=== PATIENT | female | born 1995 | race Caucasian/White ===

== ENCOUNTER → 2020-04-09 15:41 | Outpatient (BNVA) | payer OTHER, SELFPAY | PROVIDERS: PCP Internal Medicine; Referring Provider Internal Medicine; Visit Provider Surgery | DX: M79.89 Other specified soft tissue disorders (principal) | CPT/HCPCS: 99203 ==

== ENCOUNTER → 2020-08-20 08:24 | Outpatient (BNVA) | payer OTHER, SELFPAY | PROVIDERS: PCP Internal Medicine; Visit Provider Advanced Practice Midwife ==

== ENCOUNTER → 2021-09-02 08:31 | Outpatient (BNVA) | payer OTHER, SELFPAY | PROVIDERS: PCP Internal Medicine; Visit Provider Obstetrics & Gynecology ==

== ENCOUNTER → 2021-09-11 14:25 | Outpatient (REF) | payer OTHER, SELFPAY ==
--- NOTE | 2021-09-11 14:30 | ECG_ITS ---
Test Reason : PREOP Blood Pressure : / mmHG Vent. Rate : 060 BPM Atrial Rate : 060 BPM P-R Int : 132 ms QRS Dur : 096 ms QT Int : 400 ms P-R-T Axes : 068 065 044 degrees QTc Int : 400 ms Normal sinus rhythm Normal ECG No previous ECGs available Referred By: Jonny Briceno Electronically Signed By:SAY NORIEGA MD
[2021-09-11 14:39] LABS: MANUAL DIFF FLAG NO
[2021-09-11 14:44] LABS: Basophils Percent Auto 0.8 % (0-2); Eosinophils Absolute Auto 0.2 X10*3/uL (0.0-0.4); Eosinophils Percent Auto 3.7 % (0-4); Hematocrit 42.4 % (37.0-47.0); Hemoglobin 13.8 g/dl (12.0-16.0); Lymphocytes Absolute Auto 2.2 X10*3/uL (1.2-4.9); Lymphocytes Percent Auto 45.7 % (20-40); Mean Corpuscular HGB Conc 32.5 g/dl (31.0-35.0); Mean Corpuscular Hemoglobin 30.3 pg (27.0-33.0); Mean Corpuscular Volume 93.2 fL (80.0-98.0); Mean Platelet Volume 10.4 fL (9.4-12.3); Monocytes Absolute Auto 0.4 X10*3/uL (0.1-1.2); Monocytes Percent Auto 9.1 % (2-11); Neutrophils Percent Auto 40.7 % (45-73); Platelet Count 278 X10*3/uL (160-400); Red Blood Count 4.55 X10*6/uL (4.20-5.50); Red Cell Distribution Width 13.1 % (11.0-16.0); White Blood Count 4.9 X10*3/uL (4.8-10.8)
[2021-09-11 15:16] LABS: Alanine Aminotransferase 8 U/L (0-31); Albumin Level 4.4 g/dL (3.5-5.0); Alkaline Phosphatase 59 U/L (39-117); Aspartate Amino Transferase 13 U/L (5-31); Bilirubin Total 0.9 mg/dL (0.0-1.0); Blood Urea Nitrogen 9 mg/dL (9-16); Calcium 9.7 mg/dL (8.4-10.2); Estimated Glomerular Filt Rate > 60; Glucose Random 98 mg/dL (60-115); INTERNATIONAL NORM RATIO 1.1 (0.9-1.1); Total Protein 7.2 g/dL (6.5-8.0)
[2021-09-11 15:19] LABS: Partial Thromboplastin Time 36.1 SEC (24.1-38.0)
[2021-09-11 15:20] LABS: HCG Quantitative < 2 mIU/mL
[2021-09-11 15:26] LABS: Anion Gap 10 (12-20); Carbon Dioxide 27 mmol/L (22-29); Chloride 104 mmol/L (96-108); Potassium 4.2 mmol/L (3.3-5.1); Sodium 137 mmol/L (135-145)
[2021-09-11 16:36] LABS: Appearance Urine CLEAR; Color Urine YELLOW; Glucose Urine UA NEG (NEG); Leukocyte Esterase Urine NEG (NEG); Nitrite Urine NEG (NEG); PH 8.5 (5.0-8.0); Urine Blood NEG (NEG); Urine Ketones 5 MG/DL (NEG); Urine Protein TRACE MG/DL (NEG-TRACE)
[2021-09-11 17:02] LABS: Bacteria Urine 2+ /LPF; RBC Urine 0-2 /HPF (0); Squamous Epithelial Cell Urine TRACE /LPF; WBC Urine 0-2 /HPF (0-4)
[2021-09-12 08:02] LABS: HIV AB/AG Nonreactive (Nonreactive); HIV Num 1 0.08 S/CO (0.00-0.99)
== END ==
LOC: HO.CARD 14:25
PROVIDERS: PCP Internal Medicine; Visit Provider Internal Medicine
DX: Z01.818 Encounter for other preprocedural examination (principal)
CPT/HCPCS: 36415; 80053; 81001; 84702; 85025; 85610; 85730; 87086; 87389; 93005

== ENCOUNTER 2021-09-26 13:59 | Outpatient (REF) | payer OTHER, SELFPAY ==
--- NOTE | ~2021-09-26 | US_ITS ---
EXAMINATION: US BREAST, bilateral CLINICAL INFORMATION: For cosmetic surgery. COMPARISON: None. TECHNIQUE: High-resolution grayscale sonography of the breasts was performed by a technologist with a high-frequency linear transducer following a standardized protocol. All 4 quadrants were examined on each side. The retroareolar region was examined bilaterally FINDINGS: On the images submitted for review, no suspicious mass, area of architectural distortion, complex cyst or other sonographically suspicious lesion is identified in either breast. US/US breast RT complete IMPRESSION: No sonographic evidence of malignancy in either breast. ASSESSMENT: Right breast: BI-RADS 1 - negative.. Left breast: BI-RADS 1 - negative. RECOMMENDATIONS: Clinical follow-up
--- NOTE | ~2021-09-26 | US_ITS ---
EXAMINATION: US BREAST, bilateral CLINICAL INFORMATION: For cosmetic surgery. COMPARISON: None. TECHNIQUE: High-resolution grayscale sonography of the breasts was performed by a technologist with a high-frequency linear transducer following a standardized protocol. All 4 quadrants were examined on each side. The retroareolar region was examined bilaterally FINDINGS: On the images submitted for review, no suspicious mass, area of architectural distortion, complex cyst or other sonographically suspicious lesion is identified in either breast. US/US breast LT complete IMPRESSION: No sonographic evidence of malignancy in either breast. ASSESSMENT: Right breast: BI-RADS 1 - negative.. Left breast: BI-RADS 1 - negative. RECOMMENDATIONS: Clinical follow-up
== END 2021-09-26 14:00 | disposition home or self-care (01) ==
LOC: HO.MAMMO 13:59
PROVIDERS: PCP Internal Medicine; Visit Provider Internal Medicine
DX: Z01.818 Encounter for other preprocedural examination (principal)
CPT/HCPCS: 76641

== ENCOUNTER 2021-10-06 15:49 | Outpatient (REF) | payer OTHER, SELFPAY ==
--- NOTE | ~2021-10-06 | XR_ITS ---
EXAMINATION: XR CHEST CLINICAL INFORMATION: Encounter for cosmetic surgery COMPARISON: None TECHNIQUE: 2 views of the chest were obtained. FINDINGS: No significant abnormality is noted involving the heart, lungs, mediastinum, bony thorax or soft tissues. XR/XR chest 2V IMPRESSION: Unremarkable examination.
[2021-10-06 17:07] LABS: Free T4 (Free Thyroxine) 1.03 ng/dL (0.71-1.85); Thyroid Stimulating Hormone 0.67 uIU/mL (0.32-4.0)
== END 2021-10-06 15:50 | disposition home or self-care (01) ==
LOC: HO.LAB 15:49
PROVIDERS: PCP Internal Medicine; Visit Provider Internal Medicine
DX: Z01.818 Encounter for other preprocedural examination (principal); E04.1 Nontoxic single thyroid nodule
CPT/HCPCS: 36415; 71046; 84439; 84443

== ENCOUNTER 2021-10-10 07:28 | Outpatient (REF) | payer OTHER, SELFPAY ==
[2021-10-10 07:57] LABS: Appearance Urine HAZY; Color Urine YELLOW; Glucose Urine UA NEG (NEG); Leukocyte Esterase Urine NEG (NEG); Nitrite Urine NEG (NEG); Specific Gravity - Urine 1.025 (1.005-1.025); Urine Blood NEG (NEG); Urine Ketones NEG (NEG); Urine Protein NEG (NEG-TRACE)
== END 2021-10-10 07:29 | disposition home or self-care (01) ==
LOC: HO.LAB 07:28
PROVIDERS: PCP Internal Medicine; Visit Provider Internal Medicine
DX: R30.0 Dysuria (principal)
CPT/HCPCS: 81003

== ENCOUNTER 2021-11-10 08:35 | Outpatient (REF) | payer OTHER, SELFPAY ==
--- NOTE | ~2021-11-10 | US_ITS ---
EXAMINATION: US THYROID CLINICAL INFORMATION: Nontoxic single thyroid nodule. COMPARISON: US thyroid 03/22/2018.. TECHNIQUE: Linear transducer grayscale and color Doppler examination with attention to the region of the thyroid. FINDINGS: SIZE: Measurements of the thyroid lobes and nodules are given in sagittal, anteroposterior and transverse dimensions respectively. Right Thyroid Lobe: 5.1 x 1.7 x 1.3 cm, volume 5.9 mL. Previously 5.0 x 1.5 x 1.3 cm, volume 5.1 mL. Parenchyma: The gland echotexture is homogeneous. Thyroid vascularity is normal. Left Thyroid Lobe: 4.7 x 1.0 x 1.7 cm, volume 4.2 mL. Previously 4.6 x 1.3 x 1.7 cm, volume 5.3 mL. Parenchyma: The gland echotexture is homogeneous. Thyroid vascularity is normal. Isthmus: 0.3 cm in maximum AP dimension. Previously 0.2 cm. Estimated total number of nodules greater than or equal to 1 cm: 0. [employer] nodules are described as follows: 1. Location: Right mid. Size: 0.2 x 0.2 x 0.1 cm, volume 0.001 mL. Previously: Not seen on the previous study. Nodule characteristics: Composition: Cystic(0). ACR TI-RADS total points: 0 ACR TI-RADS category: 1 NODES: No lymphadenopathy is seen in the tissue surrounding the thyroid gland. US/US thyroid IMPRESSION: A 0.2 cm TR 1 right thyroid nodule, for which no follow-up imaging is recommended. ACR TI-RADS RECOMMENDATION REFERENCE: Ultrasound-guided fine-needle aspiration, followup ultrasound, no further follow up. * TR1 (0 point) and TR 2 (2 points): No FNA or follow up * TR3 (3 points): FNA if more than or equal to 2.5 cm in maximum dimension, followup ultrasound in 1, 3 and 5 years if 1.5 to 2.4 cm in maximum dimension. * TR4 (4-6 points): FNA if more than or equal to 1.5 cm in maximum dimension, followup ultrasound in 1, 2, 3 and 5 years if 1 to 1.4 cm in maximum dimension. * TR5 (more than or equal to 7 points): FNA if more than or equal to 1 cm in maximum dimension, followup ultrasound every year for 5 years if 0.5 to 0.9 cm in maximum dimension. * TR3, TR4 or TR5 nodules that are below the size threshold for follow up receive no follow up.
== END 2021-11-10 08:36 | disposition home or self-care (01) ==
LOC: HO.US 08:35
PROVIDERS: PCP Internal Medicine; Visit Provider Internal Medicine
DX: E04.1 Nontoxic single thyroid nodule (principal)
CPT/HCPCS: 76536

== ENCOUNTER → 2021-12-04 08:07 | Outpatient (BNVA) | payer OTHER, SELFPAY | PROVIDERS: Visit Provider Obstetrics & Gynecology | DX: Z30.9 Encounter for contraceptive management, unspecified (principal) | CPT/HCPCS: 99212 ==

== ENCOUNTER 2022-04-21 15:37 | Outpatient (REF) | payer OTHER, SELFPAY ==
[2022-04-22 04:43] LABS: HBS Num1 15.76 mIU/mL (0-7.99); HBc Num1 0.07 S/CO (0.00-0.79); HBsAGNum1 0.17 S/CO (0.00-0.99); Hepatitis B Core Antibody Nonreactive (Nonreactive); Hepatitis B Surface Antigen Negative (Negative); ~HepC Num1 0.04 S/CO (0.00-0.79); ~Hepatitis B Surface Antibody REACTIVE (Nonreactive); ~Hepatitis C Antibody Nonreactive (Nonreactive)
[2022-04-23 12:27] LABS: Rubella IgG Antibody 1.37 Index
[2022-04-23 16:47] LABS: Mumps Virus IgG Antibody <9.00 AU/mL; Rubeola IgG (Measles) <13.50 AU/mL
== END 2022-04-21 15:38 | disposition home or self-care (01) ==
LOC: HO.LAB 15:37
PROVIDERS: PCP Internal Medicine; Visit Provider Internal Medicine
DX: Z00.00 Encounter for general adult medical examination without abnormal findings (principal); R79.89 Other specified abnormal findings of blood chemistry; Z02.0 Encounter for examination for admission to educational institution
CPT/HCPCS: 36415; 86704; 86706; 86735; 86762; 86765; 86787; 86803; 87340

== ENCOUNTER 2022-09-07 08:55 | Outpatient (REF) | payer OTHER, SELFPAY | END 2022-09-07 08:56 | disposition home or self-care (01) | LOC: HO.LNP 08:55 | PROVIDERS: PCP Internal Medicine; Visit Provider Obstetrics & Gynecology | DX: Z01.419 Encounter for gynecological examination (general) (routine) without abnormal findings (principal) | CPT/HCPCS: 88142 ==

== ENCOUNTER 2023-03-22 09:08 | Outpatient (AMB) | payer OTHER, SELFPAY ==
[2023-03-22 09:10] VITALS: BP 108/72; PULSE 74; TEMP 37; O2SAT 99; BMI 32.4
--- NOTE | 2023-03-22 09:10 | MHC.OFFWIV ---
Intake Vital Signs 03/22/23 09:10 Height 5 ft 2 in Weight 177 lb 6 oz BMI 32.4 BP 108/72 Blood Pressure Location Rt brachial Position Sitting Pulse 74 Pulse Source Pulse Oximeter Temp 98.6 F Temp Source Oral Pulse Oximetry (%) 99 Oxygen Delivery Method Room Air Intake Visit Reasons: EP LT ear pain Intake Note: Patient is here today for Lt ear pain. Patient states it started Wednesday. Patient Tobacco Use Status: Never used Tobacco Allergies cephalexin [From Keflex] Allergy (Mild, Verified 03/22/23 09:10) Rash Medication List - Last Reconciled 03/22/23 by Senait Bowman PA-C albuterol sulfate 90 mcg/actuation 2 puffs inhalation Q4-6H PRN clotrimazole 1% 1 appl topical BID 4 weeks etonogestrel-ethinyl estradiol 0.12-0.015 mg/24 hr 1 vag ring vaginal Q4W HPI HPI Comments History of Present Illness Details This is a 27-year-old female with a past medical history of asthma and seasonal allergies presenting for evaluation of left ear pain that started on Wednesday night. Patient has been taking Tylenol only without complete relief of her discomfort. Patient denies having any fevers, chills, cough, shortness of breath, sore throat, difficulty swallowing or right ear pain. [facility] Medical History Asthma Surgical History History of breast augmentation Family History Mother No problems noted. Father No problems noted. Maternal Grandmother Heart attack Paternal Grandmother Heart attack Maternal Aunt Pancreatic cancer Social History Housing: Apartment Alcohol intake: current Patient Tobacco Use Status: Never used Tobacco e-Cigarette/Vaping Use: Never Used Second Hand Smoke Exposure: No service: No Current occupational status: employed Current occupation: [employer] Current occupational exposures/hazards: No Cognitive needs: No Hearing needs: No Vision needs: Yes Female Reproductive History Menstrual Age of Menarche: 12 Review of Systems Const Denies chills, Denies fever(s), Denies headache(s) and Denies malaise Eyes Reports no additional complaints ENT Denies dizziness, Reports otalgia (left), Denies headache(s), Reports hearing loss (left decreased hearing), Denies mouth pain and Denies sore throat Resp Reports no additional complaints Neuro Denies dizziness and Denies headache(s) Luis/Lymph Denies lymphadenopathy Physical Exam Vital Signs: Last Vital Signs Temp 98.6 F 03/22/23 09:10 Pulse 74 03/22/23 09:10 BP 108/72 03/22/23 09:10 Pulse Ox 99 03/22/23 09:10 Oxygen Delivery Method Room Air 03/22/23 09:10 BMI result Body Mass Index 32.4 Const General: cooperative, healthy appearing, comfortable, no acute distress and other (afebrile) Orientation/consciousness: patient oriented x3 Limitations: no limitations HEENT Head: Yes normal to inspection Ears: external ears normal, TM normal on the right, left TM abnormal (fluid level without bulging or erythema) and other (canals clear bilaterally) General nose exam: Normal external nose present Face and sinus: Yes normal facial exam and Yes sinuses nontender Mouth: Normal oral and palatal mucosa present and oropharynx normal Teeth and gingiva: dentition normal Throat: Yes posterior oropharynx normal Eyes General: appearance normal, both eyes and all related structures Neuro General: patient oriented x3 Assessment & Plan Assessment & Plan (1) Otalgia, left ear: Code(s): H92.02 - Otalgia, left ear Plan: Patient instructed to use ibuprofen 400mg every 4-6 hours as needed for discomfort and initiate fluticasone nasal spray once in each nostril daily. Patient will follow-up with her PCP within 7 days if her symptoms are not improving. Coding Level of Care Code Est Pt Level 3 (24392) Diagnoses Otalgia, left ear H92.02 Time Spent (min) 20
== END 2023-03-22 10:04 | disposition home or self-care (01) ==
PROVIDERS: PCP Internal Medicine; Visit Provider Physician Assistant
DX: H92.02 Otalgia, left ear (principal)
CPT/HCPCS: 99213

== ENCOUNTER 2023-03-25 11:29 | Outpatient (AMB) | payer OTHER, SELFPAY ==
[2023-03-25 11:30] VITALS: BP 118/70; PULSE 80; O2SAT 98; BMI 32.4
--- NOTE | 2023-03-25 11:30 | MHC.PC.OV ---
Vital Signs 03/25/23 11:30 Height 5 ft 2 in Weight 177 lb BMI 32.4 BP 118/70 Blood Pressure Location Lt brachial Position Sitting Pulse 80 Pulse Source Pulse Oximeter Pulse Oximetry (%) 98 Oxygen Delivery Method Room Air Intake Visit Reasons: Ear Leakage Allergies cephalexin [From Keflex] Allergy (Mild, Verified 03/25/23 11:30) Rash Tobacco use date assessed: 03/25/23 Dental Screening Dental Screen Date: 03/25/23 Did you have a dental visit in the last 12 months?: Yes Did you have a dental problem in the last 6 months where you did not have access to dental care?: No Was dental information given to patient?: Patient has dentist HPI Ear Leakage HPI Details L ear pain6 days ago - seen in Urgent was told fluid inside. noted discharge and cannot hear, and with the left ear pain prompting for consultation. denies any fever denies any cough denies any shortness of breath denies any postnasal drip denies any sore throat and denies any congestion peer [facility] Medical History Asthma Surgical History History of breast augmentation Family History Mother No problems noted. Father No problems noted. Maternal Grandmother Heart attack Paternal Grandmother Heart attack Maternal Aunt Pancreatic cancer Social History Housing: Apartment Alcohol intake: current Patient Tobacco Use Status: Never used Tobacco e-Cigarette/Vaping Use: Never Used Second Hand Smoke Exposure: No service: No Current occupational status: employed Current occupation: [employer] Current occupational exposures/hazards: No Cognitive needs: No Hearing needs: No Vision needs: Yes Female Reproductive History Menstrual Age of Menarche: 12 Questionnaire PHQ-9 Over the last 2 weeks, how often have you been bothered by any of the following problems? 1. Little interest or pleasure in doing things: not at all 2. Feeling down, depressed, or hopeless: not at all 3. Trouble falling or staying asleep, or sleeping too much: not at all 4. Feeling tired or having little energy: not at all 5. Poor appetite or overeating: not at all 6. Feeling bad about yourself - or that you are a failure or have let yourself or your family down: not at all 7. Trouble concentrating on things, such as reading the newspaper or watching television: not at all 8. Moving or speaking so slowly that other people could have noticed. Or the opposite - being so fidgety or restless that you have been moving around a lot more than usual: not at all 9. Thoughts that you would be better off or of hurting yourself in some way: not at all Total score: 0 Depression Screening Interpretation: Negative Source: Developed by Drs. Adria Lo, Rachel Yun, Clemente Burrows and colleagues, with an educational chelsy from [employer]. Thrive Questionnaire Date Thrive assessed: 03/25/23 I am a: Patient What is your living situation today?: I have a steady place to live Within the past 12 months, did the food you bought not last and you didn't have the money to get more?: Never true Within the past 12 months, did you worry whether your food would run out before you got money to buy more?: Never true Do you have trouble paying for medicines?: No Do you have trouble getting transportation to medical appointments?: No Do you have trouble paying your heating and electricity bill?: No Do you have trouble taking care of your child, family member or friend?: No Do you have trouble with day-to-day activities such as bathing, preparing meals, shopping, managing finances, etc.?: No Are you currently unemployed and looking for a job?: No Are you interested in more education?: No Currently or been in a relationship where the following occur: no concerns reported AUDIT C Alcohol Use Questionnaire (AUDIT-C) 1. How often do you have a drink containing alcohol?: 2-4 times a month 2. How many drinks containing alcohol do you have on a typical day when you are drinking?: 1 or 2 3. How often do you have six or more drinks on one occasion?: Never Total Score: 2 FAVIO-7 AMB Questionnaire FAVIO-7 Date FAVIO - 7 assessed: 03/25/23 Feeling nervous, anxious, or on edge: 0 = Not at all Not being able to stop or control worryin = Not at all Worrying too much about different things: 0 = Not at all Trouble relaxin = Not at all Being so restless that it is hard to sit still: 0 = Not at all Becoming easily annoyed or irritable: 0 = Not at all Feeling afraid as if something awful might happen: 0 = Not at all Total FAVIO-7 score (0-4 normal; 5-9 mild; 10-14 moderate; 15-21 severe): 0 Source: Developed by Drs. Adria Lo, Rachel Yun, Clemente Burrows and colleagues, with an educational chelsy from [employer]. Physical exam (Primary Care) Vital Signs: Last Vital Signs Pulse 80 03/25/23 11:30 BP 118/70 03/25/23 11:30 Pulse Ox 98 03/25/23 11:30 Oxygen Delivery Method Room Air 03/25/23 11:30 Care Plan Goal for BP management: Right TM intact, left EM not visualized due to swelling of the ear canal noted also with is some yellowish discharge BMI result Body Mass Index 32.4 Tobacco/Smoking Status: Tobacco use Status Tobacco use date assessed 03/25/23 03/25/23 11:31 Patient Tobacco Use Status Never used Tobacco 03/25/23 11:31 e-Cigarette/Vaping Use Never Used 03/25/23 11:31 PHQ-9: PHQ-9 Score PHQ-9: Total score 0 03/25/23 11:42 Depression Screening Interpretation: Negative Thrive Assessment: Date of Thrive Assessment Date Thrive assessed 03/25/23 03/25/23 11:31 Currently or been in a relationship where the following occur: no concerns reported Assessment and Plan Assessment & Plan (1) Otitis media: Comment: left Code(s): H66.90 - Otitis media, unspecified, unspecified ear Plan: Antibiotic ear drop and oral antibiotics prescribed. Medications: New [id number] 3.5-10,000-1 mg/mL-unit/mL-% 4 drps otic (ear) left Q8H 10 mL 0RF 10 days H66.90 - Otitis media, unspecified, unspecified ear amoxicillin-pot clavulanate 500-125 mg 1 tab PO Q12H 14 tabs 0RF H66.90 - Otitis media, unspecified, unspecified ear Coding Level of Care Code Est Pt Level 3 (94028) Diagnoses Otitis media H66.90
== END 2023-03-25 12:41 | disposition home or self-care (01) ==
PROVIDERS: PCP Internal Medicine; Visit Provider Internal Medicine
DX: H66.90 Otitis media, unspecified, unspecified ear (principal)
CPT/HCPCS: 99213